=== PATIENT | male | born 1965 | race Caucasian/White ===

== ENCOUNTER 2017-01-06 14:01 | Emergency (ER) | payer SELFPAY ==
[~2017-01-06] VITALS: Ht 185.4 cm; Wt 68.2 kg
[2017-01-06 14:09] VITALS: TEMP 97.9
[2017-01-06] MEDS ORDERED: DOXYCYCLINE 10100 MG PO (15:46)
[2017-01-06] MEDS ORDERED: NORCO 325 MG-51 TAB PO (15:46)
[2017-01-06 16:19] VITALS: BP 139/89; PULSE 80
== END 2017-01-06 16:20 | disposition home or self-care (01) ==
LOC: COL.ER 14:01
DX: K61.1 Rectal abscess (principal); Z23 Encounter for immunization